=== PATIENT | female | born 1955 | race Caucasian/White ===

== ENCOUNTER → 2017-04-24 | Outpatient (CLI) | payer MEDICARE, MEDICAID ==
[~2017-04-24] MED LIST: ATOR10TA9 PO; BUSP10TA PO; HYDR50TA13 PO; LISI-167 PO; SERT50TA5 PO
== END | disposition home or self-care (01) ==
LOC: CFH 13:37
PROVIDERS: ATTEND Internal Medicine Hematology & Oncology
DX: Z13.820 Encounter for screening for osteoporosis (principal); C50.212 Malignant neoplasm of upper-inner quadrant of left female breast; M81.0 Age-related osteoporosis without current pathological fracture
CPT/HCPCS: 77080

== ENCOUNTER → 2017-12-24 | Outpatient (CLI) | payer MEDICARE, MEDICAID | END | disposition home or self-care (01) | LOC: CFH 07:47 | PROVIDERS: ATTEND Nurse Practitioner | DX: Z12.31 Encounter for screening mammogram for malignant neoplasm of breast (principal) | CPT/HCPCS: 77067 ==

== ENCOUNTER → 2018-02-28 | Outpatient (CLI) | payer MEDICARE, MEDICAID | LOC: ROC 08:00 | PROVIDERS: ATTEND Radiology Radiation Oncology | DX: Z02.9 Encounter for administrative examinations, unspecified (principal) ==

== ENCOUNTER → 2018-12-31 | Outpatient (CLI) | payer MEDICARE, MEDICAID ==
[~2018-12-31] MED LIST changes: +SERT50TA28 PO; -SERT50TA5 PO
== END | disposition home or self-care (01) ==
LOC: CFH 11:28
PROVIDERS: ATTEND Internal Medicine Hematology & Oncology
DX: Z12.31 Encounter for screening mammogram for malignant neoplasm of breast (principal)
CPT/HCPCS: 77067

== ENCOUNTER → 2019-01-26 | Outpatient (CLI) | payer MEDICARE, MEDICAID | END | disposition home or self-care (01) | LOC: ROC 08:07 | PROVIDERS: ATTEND Radiology Radiation Oncology | DX: Z08 Encounter for follow-up examination after completed treatment for malignant neoplasm (principal); C50.212 Malignant neoplasm of upper-inner quadrant of left female breast | CPT/HCPCS: 99212; G0463 ==

== ENCOUNTER → 2019-04-27 | Outpatient (CLI) | payer MEDICARE, MEDICAID | END | disposition home or self-care (01) | LOC: CFH 10:48 | PROVIDERS: ATTEND Internal Medicine Hematology & Oncology | DX: M81.0 Age-related osteoporosis without current pathological fracture (principal); N95.9 Unspecified menopausal and perimenopausal disorder; C50.411 Malignant neoplasm of upper-outer quadrant of right female breast | CPT/HCPCS: 77080 ==

== ENCOUNTER → 2020-01-13 | Outpatient (CLI) | payer MEDICARE, MEDICAID ==
[~2020-01-13] VITALS: Ht 151.1 cm; Wt 104.3 kg
[~2020-01-13] MED LIST changes: +ANAS1TAB49 PO; +CALC1CAP8 PO; +CHOL40002 PO; +DENOSUMAB 60 MG/ML SQ ONE; -HYDR50TA13 PO; +HYDR50TA99 PO
[2020-01-13 11:30] VITALS: BP 108/70
[2020-01-13 12:22] LABS: CALCIUM 10.7 mg/dL (8.5-10.1); CREATININE 1.35 mg/dL (0.55-1.02)
== END | disposition home or self-care (01) ==
LOC: INFUSION 11:30
PROVIDERS: ATTEND Internal Medicine Hematology & Oncology
DX: M81.0 Age-related osteoporosis without current pathological fracture (principal); Z85.3 Personal history of malignant neoplasm of breast; Z79.899 Other long term (current) drug therapy
CPT/HCPCS: 36415; 82310; 82565; 96372; J0897

== ENCOUNTER → 2020-01-18 | Outpatient (CLI) | payer MEDICARE ==
[~2020-01-18] MED LIST changes: -DENOSUMAB 60 MG/ML SQ ONE
== END | disposition home or self-care (01) ==
LOC: CFH 09:51
PROVIDERS: ATTEND Internal Medicine Hematology & Oncology
DX: Z12.31 Encounter for screening mammogram for malignant neoplasm of breast (principal); N64.89 Other specified disorders of breast
CPT/HCPCS: 77067

== ENCOUNTER → 2020-07-26 | Outpatient (CLI) | payer MEDICARE, MEDICAID ==
[~2020-07-26] VITALS: Ht 151.1 cm; Wt 102.1 kg
[~2020-07-26] MED LIST changes: +DENOSUMAB 60 MG/ML SQ ONE
[2020-07-26 09:20] VITALS: BP 141/71
[2020-07-26 09:59] LABS: CALCIUM 12.4 mg/dL (8.5-10.1)
[2020-07-26 10:02] LABS: CREATININE 1.43 mg/dL (0.55-1.02)
== END | disposition home or self-care (01) ==
LOC: INFUSION 07:23
PROVIDERS: ATTEND Internal Medicine Hematology & Oncology
DX: M81.0 Age-related osteoporosis without current pathological fracture (principal); N64.9 Disorder of breast, unspecified; Z79.899 Other long term (current) drug therapy; Z85.3 Personal history of malignant neoplasm of breast
CPT/HCPCS: 36415; 82310; 82565; 83735; 84100; 96372; J0897

== ENCOUNTER 2020-08-06 13:50 | Observation (INO) | payer MEDICARE, MEDICAID ==
[~2020-08-06] VITALS: Ht 151.1 cm; Wt 47.5 kg
[~2020-08-06 13:50] MED LIST changes: -DENOSUMAB 60 MG/ML SQ ONE
[2020-08-06] MEDS ORDERED: MORPHINE SULFATE 4 MG/ML, 1ML ONE ×2 (14:59→16:13)
[2020-08-06] MEDS ORDERED: ONDANSETRON 2MG/ML, 2ML ONE (14:59)
[2020-08-06] MEDS ORDERED: MORPHINE SULFATE 4 MG/ML, 1ML IVPush PRN (15:00)
[2020-08-06 15:29] LABS: BASOPHILS # (AUTO) 0.03 x10^3/uL (0-0.1); BASOPHILS % (AUTO) 1 % (0-1); EOSINOPHILS # (AUTO) 0.09 x10^3/uL (0-0.4); EOSINOPHILS % (AUTO) 2 % (1-7); LYMPHOCYTES # (AUTO) 0.71 x10^3/uL (1-3.4); LYMPHOCYTES % (AUTO) 16 % (22-44); MD NO; MEAN CORPUSCULAR HEMOGLOBIN 31.3 pg (27.0-34.8); MEAN CORPUSCULAR VOLUME 94.9 fL (80-100); MEAN PLATELET VOLUME 6.8 fL (7.4-10.4); MONOCYTES % (AUTO) 11 % (2-9); NEUTROPHILS # (AUTO) 3.24 x10^3/uL (1.8-6.8); NEUTROPHILS % (AUTO) 71 % (42-75); PLATELET COUNT 306 x10^3/uL (130-400); RED BLOOD COUNT 3.47 x10^6/uL (3.82-5.3)
[2020-08-06 15:40] LABS: ALANINE AMINOTRANSFERASE 20 U/L (12-78); ALBUMIN 3.5 g/dL (3.4-5.0); ANION GAP 8 mmol/L (5-15); CALCIUM 9.5 mg/dL (8.5-10.1); CHLORIDE 99 mmol/L (98-107); CREATININE 0.99 mg/dL (0.55-1.02)
[2020-08-06 15:42] LABS: ALKALINE PHOSPHATASE 60 U/L (45-117); BILIRUBIN,TOTAL 0.5 mg/dL (0.2-1.0); TOTAL PROTEIN 7.1 g/dL (6.4-8.2)
[2020-08-06 15:50] LABS: MICROSCOPIC AUTO
[2020-08-06] MEDS ORDERED: SODIUM CHLORIDE 0.9% 1,000ML IV ONE (16:00)
[2020-08-06] MEDS ORDERED: SODIUM CHLORIDE FLUSH 10ML SYR IVF ONE (16:00)
[2020-08-06] MEDS ORDERED: ONDANSETRON 2MG/ML, 2ML IVPush ONE (16:00)
[2020-08-06 18:12] LABS: TROPONIN I < 0.015 ng/mL (0.000-0.045)
[2020-08-06 18:35] VITALS: BP 151/49
[2020-08-06] MEDS ORDERED: ACETAMINOPHEN 325 MG TABLET PO PRN (22:30)
[2020-08-06] MEDS ORDERED: MELATONIN 5 MG TABLET PO PRN (22:30)
[2020-08-06] MEDS ORDERED: ONDANSETRON ODT 4 MG PO PRN (22:30)
[2020-08-06] MEDS ORDERED: SIMETHICONE 125 MG CHEW TAB PO PRN (22:30)
[2020-08-06] MEDS ORDERED: HYDROcodone/APAP 5/325 TABLET PO PRN (22:30)
[2020-08-06] MEDS ORDERED: ENALAPRILAT 1.25 MG/ML, 2ML IVPush PRN (22:30)
[2020-08-06] MEDS ORDERED: LIDODERM 5% PATCH TD PRN (22:30)
[2020-08-06] MEDS ORDERED: DOCUSATE 100 MG CAPSULE PO PRN (22:30)
[2020-08-07 02:18] VITALS: BP 101/58
[2020-08-07 05:42] LABS: BASOPHILS # (AUTO) 0.03 x10^3/uL (0-0.1); BASOPHILS % (AUTO) 1 % (0-1); EOSINOPHILS % (AUTO) 2 % (1-7); LYMPHOCYTES # (AUTO) 0.64 x10^3/uL (1-3.4); LYMPHOCYTES % (AUTO) 14 % (22-44); MD NO; MEAN CORPUSCULAR HEMOGLOBIN 31.5 pg (27.0-34.8); MEAN CORPUSCULAR HGB CONC 33.1 g/dL (32.4-35.8); MEAN CORPUSCULAR VOLUME 95.1 fL (80-100); MEAN PLATELET VOLUME 6.9 fL (7.4-10.4); MONOCYTES # (AUTO) 0.51 x10^3/uL (0.2-0.8); MONOCYTES % (AUTO) 11 % (2-9); NEUTROPHILS # (AUTO) 3.23 x10^3/uL (1.8-6.8); NEUTROPHILS % (AUTO) 72 % (42-75); PLATELET COUNT 277 x10^3/uL (130-400); RED BLOOD COUNT 3.47 x10^6/uL (3.82-5.3); RED CELL DISTRIBUTION WIDTH 13.2 % (9.6-15.2)
[2020-08-07 06:26] VITALS: BP 91/58
[2020-08-07] MEDS ORDERED: ACETAMINOPHEN 325 MG TABLET PO PRN (07:30)
[2020-08-07] MEDS ORDERED: HEPARIN 5,000 UNITS/ML, 1ML SQ SCH (07:30)
[2020-08-07] MEDS ORDERED: SODIUM CHLORIDE 0.9% 1,000 ML IV SCH (07:30)
[2020-08-07] MEDS ORDERED: HYDROcodone/APAP 5/325 TABLET PO PRN (07:30)
[2020-08-07 08:09] LABS: ANION GAP 6 mmol/L (5-15); CALCIUM 8.6 mg/dL (8.5-10.1); CHLORIDE 100 mmol/L (98-107)
[2020-08-07 08:10] LABS: CREATININE 0.93 mg/dL (0.55-1.02)
[2020-08-07] MEDS ORDERED: ATORVASTATIN 10 MG TABLET PO SCH (09:00)
[2020-08-07] MEDS ORDERED: LISINOPRIL 10 MG TABLET PO SCH ×2 (09:00)
[2020-08-07] MEDS ORDERED: ANASTROZOLE 1 MG TABLET PO SCH (09:00)
[2020-08-07] MEDS ORDERED: CHOLECALCIFEROL 5,000u TAB PO SCH (09:00)
[2020-08-07] MEDS ORDERED: SIME125T PO (10:55)
[2020-08-07] MEDS ORDERED: ONDA4TAB13 PO (10:55)
[2020-08-07 12:24] VITALS: BP 120/73
== END 2020-08-07 17:48 | disposition home or self-care (01) ==
LOC: ED 15:47 → EDIP 17:41 → INTOOBSV 17:41 → 3N 18:28
PROVIDERS: ADMIT Family Medicine; ATTEND Internal Medicine
DX: N20.0 Calculus of kidney (principal); K57.30 Diverticulosis of large intestine without perforation or abscess without bleeding; D64.9 Anemia, unspecified; E66.01 Morbid (severe) obesity due to excess calories; E78.5 Hyperlipidemia, unspecified; I10 Essential (primary) hypertension; G47.00 Insomnia, unspecified; R00.2 Palpitations; E87.1 Hypo-osmolality and hyponatremia; Z66 Do not resuscitate; Z85.3 Personal history of malignant neoplasm of breast; Z79.899 Other long term (current) drug therapy; Z87.891 Personal history of nicotine dependence
CPT/HCPCS: 36415; 71045; 74176; 80048; 80053; 81001; 83605; 83690; 84484; 85025; 87040; 87086; 93005; 96361; 96372; 96374; 96375; 99285; G0378; J1644; J2270; J2405; J7030; 96376

== ENCOUNTER 2020-08-08 09:33 | Emergency (ER) | payer MEDICARE, MEDICAID ==
[~2020-08-08] VITALS: Ht 149.9 cm; Wt 105.0 kg
[~2020-08-08 09:33] MED LIST changes: +ONDA4TAB13 PO; +SIME125T PO
[2020-08-08 09:47] VITALS: BP 132/69
--- NOTE | 2020-08-08 11:15 | NUR ---
PT CAME LISSETT C/O LAYA LEFT HJAWM, DENIES PAIN. PT STATES ITS LIKELY AN ABCESSED TOOTH DUE TO HAVING 3 BEFORE, SIMILAR CIRCUMSTANCE. PT MADE COMFORTABLE. AWAITING FURTHER ORDERS.
== END 2020-08-08 12:08 | disposition home or self-care (01) ==
LOC: ED 11:37
DX: L03.211 Cellulitis of face (principal)
CPT/HCPCS: 99283

== ENCOUNTER → 2021-01-23 | Outpatient (CLI) | payer MEDICARE, MEDICAID | END | disposition home or self-care (01) | LOC: CFH 10:14 | PROVIDERS: ATTEND Internal Medicine Hematology & Oncology | DX: Z12.31 Encounter for screening mammogram for malignant neoplasm of breast (principal) | CPT/HCPCS: 77063; 77067 ==

== ENCOUNTER → 2021-05-24 | Outpatient (CLI) | payer MEDICARE, MEDICAID | END | disposition home or self-care (01) | LOC: CFH 09:03 | PROVIDERS: ATTEND Internal Medicine Hematology & Oncology | DX: C50.212 Malignant neoplasm of upper-inner quadrant of left female breast (principal); M85.89 Other specified disorders of bone density and structure, multiple sites | CPT/HCPCS: 77080 ==

== ENCOUNTER 2021-08-17 12:06 | Observation (INO) | payer MEDICARE, MEDICAID ==
[~2021-08-17] VITALS: Ht 151.1 cm; Wt 98.0 kg
--- NOTE | 2021-08-17 12:29 | NUR ---
JELLY VIVAR AT BEDSIDE TO EVAL PT
--- NOTE | 2021-08-17 12:38 | NUR ---
CONTACT WITH PT, 66 YR OLD FEMALE HERE WITH C/O "I THINK I HAVE A UTI, I HAVE PAIN WHERE MY KIDNEYS ARE, WORSE ON THE LEFT THAN THE RIGHT. I WENT TO [facility] AND THEY SENT ME HERE, BECAUSE I COULDNT PEE" HAS BEEN FOR 3 DAYS. REPORTS LAST TIME URINATED WAS "EARLY THIS MORNING"
[2021-08-17] MEDS ORDERED: KETOROLAC 30 MG/1 ML ONE (12:50)
[2021-08-17] MEDS ORDERED: PHENAZOPYRIDINE 200 MG TABLET ONE (12:50)
[2021-08-17] MEDS ORDERED: PHENAZOPYRIDINE 200 MG TABLET PO ONE (13:00)
[2021-08-17] MEDS ORDERED: KETOROLAC 30 MG/1 ML IM ONE (13:00)
[2021-08-17 13:05] LABS: BASOPHILS % (AUTO) 1 % (0-1); EOSINOPHILS % (AUTO) 0 % (1-7); LYMPHOCYTES % (AUTO) 7 % (22-44); MEAN CORPUSCULAR HEMOGLOBIN 32.7 pg (27.0-34.8); MEAN CORPUSCULAR HGB CONC 34.2 g/dL (32.4-35.8); MEAN PLATELET VOLUME 6.6 fL (7.4-10.4); MONOCYTES % (AUTO) 7 % (2-9); NEUTROPHILS % (AUTO) 85 % (42-75); PLATELET COUNT 328 x10^3/uL (130-400); RED BLOOD COUNT 3.59 x10^6/uL (3.82-5.3); RED CELL DISTRIBUTION WIDTH 13.5 % (9.6-15.2)
[2021-08-17 13:11] LABS: ALBUMIN 3.6 g/dL (3.4-5.0); ANION GAP 13 mmol/L (5-15); CALCIUM 9.7 mg/dL (8.5-10.1); CHLORIDE 86 mmol/L (98-107); CREATININE 1.46 mg/dL (0.55-1.02)
--- NOTE | 2021-08-17 13:24 | NUR ---
PT MEDICATED ORDERED FOR 07/04 PAIN. MC FOR URINE SPECIMAN COMPLETED. PT LINDA WELL. PT AWARE OF WAITING FOR TEST RESULTS.
[2021-08-17 13:37] LABS: MICROSCOPIC NOT IND
--- NOTE | 2021-08-17 13:51 | NUR ---
ASSUMED CARE OF PATIENT. BEDSIDE REPORT GIVEN FROM KESHAV LIM.
--- NOTE | 2021-08-17 13:52 | NUR ---
REPORT TO MATTHEW PARR
--- NOTE | 2021-08-17 13:55 | NUR ---
PT WENT TO CT
[2021-08-17] MEDS ORDERED: SODIUM CHLORIDE 0.9% 1,000ML IVBOLUS ONE (14:30)
[2021-08-17] MEDS ORDERED: PROLIA (14:44)
--- NOTE | 2021-08-17 14:44 | NUR ---
PT RESTING IN ROOM. VS STABLE. CALL LIGHT IN PLACE. WILL CONTINUE TO MONITOR.
[2021-08-17 16:05] LABS: ANION GAP 12 mmol/L (5-15); CALCIUM 9.4 mg/dL (8.5-10.1); CHLORIDE 88 mmol/L (98-107)
--- NOTE | 2021-08-17 16:05 | NUR ---
report given to KESHAV Melendez
[2021-08-17 16:16] LABS: CREATININE 1.25 mg/dL (0.55-1.02)
[2021-08-17] MEDS ORDERED: TRAZODONE 50MG TABLET PO PRN (16:30)
[2021-08-17] MEDS ORDERED: POLYETHYLENE GLYCOL 17 GM PACKET PO PRN (16:30)
[2021-08-17] MEDS ORDERED: ONDANSETRON 2MG/ML, 2ML IVPush PRN (16:30)
[2021-08-17] MEDS ORDERED: ACETAMINOPHEN 325 MG TABLET PO PRN (16:30)
[2021-08-17] MEDS ORDERED: MELATONIN 5 MG TABLET PO PRN (16:30)
--- NOTE | 2021-08-17 16:49 | NUR ---
MATTHEW PARR TO ASSUME CARE OF PT AGAIN. PT PLACED ON HOSPITAL BED.
--- NOTE | 2021-08-17 17:12 | NUR ---
PT RESTING IN ROOM. VS STABLE. CALL LIGHT IN PLACE. WILL CONTINUE TO MONITOR.
--- NOTE | 2021-08-17 18:24 | NUR ---
PT WATCHING TV IN ROOM. VS STABLE. CALL LIGHT IN PLACE. WILL CONTINUE TO MONITOR.
[2021-08-17] MEDS ORDERED: ENOXAPARIN 40 MG/0.4 ML SQ SCH (18:30)
--- NOTE | 2021-08-17 20:23 | NUR ---
PT RESTING IN ROOM. PT USED BEDSIDE COMMODE. VS STABLE. NO ACUTE DISTRESS NOTED. REPORT GIVEN TO KESHAV ZAZUETA FOR BREAK
[2021-08-17] MEDS ORDERED: ENOXAPARIN 40 MG/0.4 ML ONE (20:59)
--- NOTE | 2021-08-17 21:02 | NUR ---
PT WATCHING TV IN ROOM. PT REPORTS SHE IS NOT HUNGRY AT THIS TIME. VS STABLE. CALL LIGHT IN PLACE. WILL CONTINUE TO MONITOR
[2021-08-17 21:39] VITALS: BP 109/63
[2021-08-17 22:27] LABS: ANION GAP 11 mmol/L (5-15); CALCIUM 9.8 mg/dL (8.5-10.1); CHLORIDE 91 mmol/L (98-107)
[2021-08-18 06:13] LABS: ANION GAP 11 mmol/L (5-15); CALCIUM 9.8 mg/dL (8.5-10.1); CHLORIDE 91 mmol/L (98-107); CREATININE 1.15 mg/dL (0.55-1.02)
[2021-08-18 07:37] VITALS: BP 127/65
[2021-08-18 07:47] LABS: LDL/HDL RATIO 0.8 (0.5-3.0)
[2021-08-18] MEDS ORDERED: CHOLECALCIFEROL 5,000u TAB PO SCH (09:00)
[2021-08-18] MEDS ORDERED: CALCIUM/VITAMIN D3 250-125 TABLET PO SCH (09:00)
[2021-08-18] MEDS ORDERED: ANASTROZOLE 1 MG TABLET PO SCH (09:00)
[2021-08-18] MEDS ORDERED: ATORVASTATIN 10 MG TABLET PO SCH (09:00)
[2021-08-18] MEDS ORDERED: LISINOPRIL 10 MG TABLET PO SCH (09:00)
[2021-08-18] MEDS ORDERED: SENNA/DOCUSATE TABLET PO SCH (09:00)
[2021-08-18 10:29] LABS: ANION GAP 9 mmol/L (5-15); CALCIUM 9.5 mg/dL (8.5-10.1); CHLORIDE 94 mmol/L (98-107); CREATININE 1.14 mg/dL (0.55-1.02)
== END 2021-08-18 14:30 | disposition home or self-care (01) ==
LOC: ED 12:36 → INTOOBSV 15:03 → EDIP 15:03 → SUATTDRO 15:14 → 4NE 21:30
PROVIDERS: ADMIT Internal Medicine; ATTEND Hospitalist
DX: E87.1 Hypo-osmolality and hyponatremia (principal); E86.1 Hypovolemia; G89.29 Other chronic pain; M54.9 Dorsalgia, unspecified; R33.9 Retention of urine, unspecified; R53.81 Other malaise; R10.9 Unspecified abdominal pain; I10 Essential (primary) hypertension; C50.919 Malignant neoplasm of unspecified site of unspecified female breast; K57.92 Diverticulitis of intestine, part unspecified, without perforation or abscess without bleeding; N20.0 Calculus of kidney; Z87.442 Personal history of urinary calculi; Z79.899 Other long term (current) drug therapy
CPT/HCPCS: 36415; 74176; 80048; 80061; 81003; 82040; 82533; 84443; 85025; 96360; 96361; 96372; 99284; G0378; J1650; J1885; J7030; 99285